=== PATIENT | male | born 1955 | race Caucasian/White ===

== ENCOUNTER → 2022-10-23 | Outpatient (CLI) | payer MEDICARE ==
[~2022-10-23] MED LIST: APIX5TAB PEG; ATOR40TA28 PEG; ATOR40TA71 PEG; DILT-72 PEG; DILT-72 PO; DOCU50LI40 PEG; FAMO20 PEG; FAMO40OR5 PEG; LISI-893 PEG; MULT-248 PEG; MULT9LIQ7 PEG; TAMS-13 PEG; THIA100T80 PEG
== END | disposition home or self-care (01) ==
LOC: RADMN 13:32
PROVIDERS: ATTEND Physical Medicine & Rehabilitation
DX: R13.10 Dysphagia, unspecified (principal)
CPT/HCPCS: 74230; 92611